=== PATIENT | female | born 1945 | race Caucasian/White ===

== ENCOUNTER 2019-10-18 22:43 | Emergency (ER) | payer MEDICARE ==
[2019-10-18 23:32] LABS: #Basophils 0.1 thou/uL (0.0-0.2); #Lymphocytes 2.5 thou/uL (1.20-3.40); #Monocytes 0.6 thou/uL (0.11-0.59); #Neutrophils 5.9 thou/uL (1.40-6.50); %Basophils 1.1 % (0.0-1.0); %Eosinophils 0.5 % (0.0-10.0); %Lymphocytes 27.4 % (21.0-51.0); %Monocytes 6.1 % (0.0-10.0); Hemoglobin 12.8 g/dL (12.0-16.0); Mean Corpuscular HGB CONC 32.7 g/dL (32.0-36.0); Mean Corpuscular Hemoglobin 29.2 pg (27.0-31.0); Mean Corpuscular Volume 89.3 fL (78.0-98.0); Platelet Count 186 thou/uL (130-400); RBC Distribution Width 13.7 % (11.5-14.5); Red Blood Cell (RBC) Count 4.39 mill/uL (4.20-5.40); White Blood Cell (WBC) Count 9.1 thou/uL (4.8-10.8)
[2019-10-18 23:33] LABS: MDiff Complete? YES; Manual Diff?? NO
[2019-10-18 23:37] LABS: Bilirubin Small (Negative); Blood, Urine Large (Negative); Clarity Cloudy (Clear); Glucose, Urine (Dipstick) Negative (Negative); Leukocyte Small (Negative); Nitrite Negative (Negative); Protein, Urine (Dipstick) 30 mg/dL (Neg-Trace); Urobilinogen 0.2 mg/dL (Less than 2)
[2019-10-18 23:44] LABS: ALT (SGPT) 15 U/L (8-55); AST (SGOT) 17 U/L (5-34); Albumin 3.9 g/dL (3.4-4.8); Alkaline Phosphatase 52 U/L (40-110); Anion Gap 15 mmol/L (10-20); BUN (Urea Nitrogen) 11 mg/dL (9.8-20.1); Bilirubin, Total 0.5 mg/dL (0.2-1.2); Calc. Creatinine Clearance 0 mL/min (70-130); Calcium 9.5 mg/dL (7.8-10.44); Carbon Dioxide 22 mmol/L (23-31); Chloride 106 mmol/L (98-107); Estimated GFR-MDRD 60; Globulin 3.3 g/dL (2.4-3.5); Glucose 110 mg/dL (83-110); Potassium 3.7 mmol/L (3.5-5.1); Protein, Total 7.2 g/dL (6.0-8.3); Sodium 139 mmol/L (136-145)
[2019-10-18 23:45] LABS: Mucous/LPF 2+ LPF (<2+); RBC/HPF Greater than 50 HPF (0-3); Squamous Epithelial 0-3 HPF (0-3); WBC/HPF 0-3 HPF (0-3)
--- NOTE | 2019-10-19 07:22 | CT ---
.PRELIMINARY REPORT/[facility]/EMERGENCY AFTER HOURS PROCEDURE: Receipt of this report by the clinical staff was confirmed with ISI NRAAYANAN MD by Samina Holley on Sep 262018 23:55:00 [employer] WORK[employer]. Addendum electronically signed by Samina Holley on October 18, 2019 11:55:59 PM BEST WORKER EXAM: CT Abdomen and Pelvis Without Intravenous Contrast CLINICAL HISTORY: Lt Flank Pain that started this evening, no hx of kidney stones TECHNIQUE: Axial computed tomography images of the abdomen and pelvis without intravenous contrast. CONTRAST: None. COMPARISON: None provided. FINDINGS: LUNG BASES: No basilar airspace consolidation or pleural effusion. LIVER: Unremarkable GALLBLADDER AND BILE DUCTS: Unremarkable. No calcified stone. No ductal dilation. PANCREAS: Unremarkable. SPLEEN: Unremarkable. ADRENAL GLANDS: Unremarkable. KIDNEYS, URETERS, AND BLADDER: Unremarkable. No hydronephrosis or nephrolithiasis. No ureteral or en dder calculi. STOMACH AND BOWEL: Colonic diverticulosis without evidence of diverticulitis. No bowel obstruction. APPENDIX: Normal appendix. PERITONEUM: No free fluid. No free air. LYMPH NODES: No lymphadenopathy. REPRODUCTIVE: Posterior to the uterus, there is a lobulated 9.8 x 5.2 x 5.7 cm heterogeneous, partial ly cystic structure. There is hyperdensity at the posterior aspect which may represent hemorrhage. Th ere is a focal calcification within the posterior aspect which may be adjacent to or possibly represe nting a calcified septation. There is hypodensity within the cervix which may represent endocervical fluid or hemorrhage. VASCULATURE: No aortic aneurysm. ABDOMINAL WALL AND SOFT TISSUES: Moderate fat-containing umbilical hernia measuring up to 6.7 cm in c raniocaudal dimension with a 2.2 cm neck. BONES: No fracture or suspicious osseous abnormality. IMPRESSION: 9.8 cm lobulated cystic heterogeneous structure at the posterior aspect of the uterus with internal h yperdensity which may represent hemorrhage. Differential diagnosis includes benign or malignant uter ine or ovarian lesions. Endocervical hypodensity may represent fluid or hemorrhage. Further evaluatio n with pelvic ultrasound and/or MRI is recommend for further evaluation. Moderate fat-containing umbilical hernia. ELECTRONICALLY SIGNED BY: Ale Harrington MD Oct 18, 2019 11:52:26 PM BEST WORKER This report is intended for review by the ordering physician only, in accordance of law. If you recei ve this report in error, please call [facility] at [phone]. FINAL REPORT CT ABDOMEN AND PELVIS WITHOUT CONTRAST: Date: 10/18/[address] of the abdomen and pelvis was done for evaluation of flank pain. The lung bases are clear. The liver, spleen, pancreas, adrenal glands, and abdominal aorta showed no acute findings. The gallbladder was slightly generous in size at 7.8 cm in length, but it otherwise appeared normal. The kidneys showed no sign of mass or hydronephrosis. Perirenal streaking is present bilaterally and is probably longstanding. There is no distention of bowel. Diverticulosis is present without findings of diverticulitis. The ap pendix was identified and appeared normal; however, there is a calcification near its tip. A fat-fill ed umbilical hernia is present, which is rather large. Transverse diameter of the hernia within the s oft tissues of the anterior abdominal wall is 7.3 cm. The neck is about 2.5 cm. No free air or free f luid seen. CT of the pelvis was remarkable for a lobulated cystic appearing density posterior to the uterus. It measures about 9.6 x 5.1 cm. There is a hyperdense area in the dependent portion of it raising the qu estion of hemorrhage. There is also a calcification associated with it. Fluid is suggested in the cer vix. All of these findings are abnormal, particularly in this age group. Further imaging is required. Extensive degenerative changes are present in the lower lumbar spine, particularly in the facet joint s. IMPRESSION: 1. 9.6 cm lobulated cystic structure posterior to the uterus. The most prominent concern would be so me sort of cystic ovarian neoplasm. In this age group, one would worry about a malignant etiology ove r a benign one, though the latter is not ruled out. A pelvic ultrasound is suggested as a next stent. There may need to be other imaging after that, such as a MRI. 2. Large, fat-filled umbilical hernia. 3. Diverticulosis. Reading in agreement with preliminary report by [facility]. POS: HOME
== END 2019-10-19 00:15 | disposition home or self-care (01) ==
LOC: BURERS 22:43
DX: R19.00 Intra-abdominal and pelvic swelling, mass and lump, unspecified site (principal); R10.32 Left lower quadrant pain; I10 Essential (primary) hypertension; E78.5 Hyperlipidemia, unspecified; Z79.899 Other long term (current) drug therapy; Z79.01 Long term (current) use of anticoagulants
CPT/HCPCS: 36415; 74176; 80053; 81003; 81015; 85025; 87086; A4353

== ENCOUNTER 2020-07-31 16:21 | Emergency (ER) | payer MEDICARE ==
[2020-07-31] MEDS ORDERED: Lorazepam 2 MG/ML VIAL ONE (17:01)
[2020-07-31 17:04] LABS: Band 1 % (5-11); Eosinophils 2 % (0-10); Hemoglobin 13.3 g/dL (12.0-16.0); Lymphocytes 33 % (21-51); MDiff Complete? YES; Mean Corpuscular Hemoglobin 27.5 pg (27.0-31.0); Mean Corpuscular Volume 91.8 fL (78.0-98.0); Mean Platelet Volume 5.9 fL (7.4-10.4); Monocytes 5 % (0-10); Neutrophil 59 % (42-75); Platelet Count 223 thou/uL (130-400); RBC Distribution Width 14.2 % (11.5-14.5); Red Blood Cell (RBC) Count 4.83 mill/uL (4.20-5.40); White Blood Cell (WBC) Count 7.5 thou/uL (4.8-10.8)
[2020-07-31 17:18] LABS: ALT (SGPT) 12 U/L (8-55); AST (SGOT) 10 U/L (5-34); Albumin 3.7 g/dL (3.4-4.8); Alkaline Phosphatase 59 U/L (40-110); Anion Gap 14 mmol/L (10-20); BUN (Urea Nitrogen) 8 mg/dL (9.8-20.1); Bilirubin, Total 0.4 mg/dL (0.2-1.2); Calc. Creatinine Clearance 0 mL/min (70-130); Calcium 9.1 mg/dL (7.8-10.44); Carbon Dioxide 27 mmol/L (23-31); Chloride 106 mmol/L (98-107); Estimated GFR-MDRD 63; Globulin 3.2 g/dL (2.4-3.5); Glucose 112 mg/dL (83-110); Potassium 4.3 mmol/L (3.5-5.1); Protein, Total 6.9 g/dL (6.0-8.3); Sodium 143 mmol/L (136-145)
--- NOTE | 2020-07-31 20:24 | CT ---
CT OF THE BRAIN WITHOUT CONTRAST: 07/31/[address] shows normal sized ventricles for age and atrophy. No intracranial bleeding, mass or sign of acute stroke was found. There is prominent opacification of the left side of the sphenoid si nus. Chronic sinusitis is presumed. A portion of it has a somewhat rounded appearance. I cannot rule out a retention cyst either. The other visible paranasal sinuses are clear. IMPRESSION: 1. No acute intracranial findings. 2. Chronic left sphenoid sinus disease. Findings discussed with Dr. Villagomez at [id number] on 07/31/20. POS: HOME
== END 2020-07-31 17:54 | disposition home or self-care (01) ==
LOC: BURERS 16:21
DX: F41.9 Anxiety disorder, unspecified (principal); J32.9 Chronic sinusitis, unspecified; E78.5 Hyperlipidemia, unspecified; I10 Essential (primary) hypertension; Z79.899 Other long term (current) drug therapy
CPT/HCPCS: 36415; 70450; 80053; 84443; 84484; 85025; 93005; 96374; J2060

== ENCOUNTER 2020-10-12 15:16 | Emergency (ER) | payer MEDICARE ==
[2020-10-12] MEDS ORDERED: Lorazepam 2 MG/ML VIAL ONE (15:56)
[2020-10-12 16:45] LABS: #Basophils 0.1 thou/uL (0.0-0.2); #Eosinphils 0.2 thou/uL (0.0-0.7); #Lymphocytes 2.4 thou/uL (1.20-3.40); #Monocytes 0.5 thou/uL (0.11-0.59); #Neutrophils 5.9 thou/uL (1.40-6.50); %Basophils 1.3 % (0.0-1.0); %Eosinophils 1.8 % (0.0-10.0); %Lymphocytes 26.2 % (21.0-51.0); %Monocytes 5.7 % (0.0-10.0); %Neutrophils 65.1 % (42.0-75.0); Hemoglobin 14.9 g/dL (12.0-16.0); Mean Corpuscular HGB CONC 31.5 g/dL (32.0-36.0); Mean Corpuscular Hemoglobin 28.1 pg (27.0-31.0); Mean Platelet Volume 6.6 fL (7.4-10.4); Platelet Count 216 thou/uL (130-400); White Blood Cell (WBC) Count 9.1 thou/uL (4.8-10.8)
[2020-10-12 16:59] LABS: ALT (SGPT) 12 U/L (8-55); AST (SGOT) 13 U/L (5-34); Albumin 3.7 g/dL (3.4-4.8); Alkaline Phosphatase 64 U/L (40-110); Anion Gap 14 mmol/L (10-20); BUN (Urea Nitrogen) 8 mg/dL (9.8-20.1); Bilirubin, Total 0.4 mg/dL (0.2-1.2); Calc. Creatinine Clearance 0 mL/min (70-130); Carbon Dioxide 27 mmol/L (23-31); Chloride 106 mmol/L (98-107); Globulin 3.9 g/dL (2.4-3.5); Glucose 116 mg/dL (83-110); Protein, Total 7.6 g/dL (6.0-8.3); Sodium 143 mmol/L (136-145)
[2020-10-12] MEDS ORDERED: Aspirin Chewable 81 MG TAB ONE (17:09)
[2020-10-12] MEDS ORDERED: Metoprolol Tartrate 5 MG/5 ML VIAL ONE (17:10)
--- NOTE | 2020-10-12 17:11 | RAD ---
PORTABLE CHEST: 10/12/20 An AP portable film at 1642 shows a normal sized heart and clear lungs. No acute infiltrate or effusi on was seen. There is no edema or congestion. IMPRESSION: No acute finding. POS: HOME
[2020-10-12 17:16] LABS: CKMB 1.1 ng/mL (0-6.6)
[2020-10-12 17:25] LABS: PTT 30.3 sec (22.9-36.1)
[2020-10-12] MEDS ORDERED: Enoxaparin Sodium 100 MG/ML SYRINGE ONE (17:31)
[2020-10-12 17:40] LABS: D-Dimer Test 7.29 *mcg/mL (0.27-0.43)
== END 2020-10-12 17:44 | disposition short-term general hospital (02) ==
LOC: BURERS 15:16
DX: I21.4 Non-ST elevation (NSTEMI) myocardial infarction (principal); F41.9 Anxiety disorder, unspecified; E78.5 Hyperlipidemia, unspecified; I10 Essential (primary) hypertension; Z79.899 Other long term (current) drug therapy
CPT/HCPCS: 71045; 80053; 82553; 83880; 84484; 85025; 85379; 85610; 85730; 93005; 96372; 96374; J1650; J2060

== ENCOUNTER 2020-12-23 17:56 | Emergency (ER) | payer MEDICARE | END 2020-12-23 18:50 | disposition home or self-care (01) | LOC: BURERS 17:56 | DX: F41.9 Anxiety disorder, unspecified (principal); E78.5 Hyperlipidemia, unspecified; E78.1 Pure hyperglyceridemia; I10 Essential (primary) hypertension | CPT/HCPCS: 99283 ==

== ENCOUNTER 2021-02-19 12:40 | Emergency (ER) | payer MEDICARE ==
[2021-02-19] MEDS ORDERED: Lorazepam 0.5 MG TAB ONE (13:28)
[2021-02-19 15:18] LABS: Clarity Slightly Cloudy (Clear); Glucose, Urine (Dipstick) Negative (Negative); Ketone, Urine Negative (Negative); Leukocyte Moderate (Negative); Nitrite Negative (Negative); Protein, Urine (Dipstick) Negative (Neg-Trace); Urobilinogen 0.2 mg/dL (Less than 2)
[2021-02-19 15:19] LABS: Bacteria/HPF 2+ HPF (None Seen); Bilirubin Negative (Negative); Blood, Urine Negative (Negative); RBC/HPF 0-3 HPF (0-3); Squamous Epithelial 0-3 HPF (0-3)
[2021-02-19 15:20] LABS: Hemoglobin 14.1 g/dL (12.0-16.0); Red Blood Cell (RBC) Count 4.88 mill/uL (4.20-5.40); White Blood Cell (WBC) Count 7.3 thou/uL (4.8-10.8)
[2021-02-19 15:21] LABS: #Eosinphils 0.1 thou/uL (0.0-0.7); #Monocytes 0.4 thou/uL (0.11-0.59); #Neutrophils 4.1 thou/uL (1.40-6.50); %Basophils 1.4 % (0.0-1.0); %Lymphocytes 35.5 % (21.0-51.0); %Monocytes 5.6 % (0.0-10.0); %Neutrophils 56.5 % (42.0-75.0); Mean Corpuscular HGB CONC 31.4 g/dL (32.0-36.0); Mean Corpuscular Hemoglobin 28.8 pg (27.0-31.0); Mean Corpuscular Volume 91.8 fL (78.0-98.0); Mean Platelet Volume 5.9 fL (7.4-10.4); Platelet Count 257 thou/uL (130-400); RBC Distribution Width 14.1 % (11.5-14.5)
[2021-02-19 15:22] LABS: #Basophils 0.1 thou/uL (0.0-0.2); MDiff Complete? YES
[2021-02-19 15:23] LABS: Anion Gap 13 mmol/L (10-20); BUN (Urea Nitrogen) 8 mg/dL (9.8-20.1); Carbon Dioxide 27 mmol/L (23-31); Chloride 107 mmol/L (98-107); Potassium 4.6 mmol/L (3.5-5.1); Sodium 142 mmol/L (136-145)
[2021-02-19 15:24] LABS: ALT (SGPT) 10 U/L (8-55); AST (SGOT) 12 U/L (5-34); Albumin 3.6 g/dL (3.4-4.8); Alkaline Phosphatase 57 U/L (40-110); Bilirubin, Total 0.4 mg/dL (0.2-1.2); Calc. Creatinine Clearance 0 mL/min (70-130); Calcium 9.1 mg/dL (7.8-10.44); Globulin 3.2 g/dL (2.4-3.5); Glucose 107 mg/dL (83-110); Protein, Total 6.8 g/dL (5.8-8.1)
== END 2021-02-19 14:15 | disposition home or self-care (01) ==
LOC: BURERS 12:40
DX: N39.0 Urinary tract infection, site not specified (principal); F41.9 Anxiety disorder, unspecified
CPT/HCPCS: 36415; 80053; 81003; 81015; 84443; 85025; 99282

== ENCOUNTER 2021-04-29 13:40 | Emergency (ER) | payer BC, MEDICARE, SELFPAY ==
[2021-04-29 14:36] LABS: #Basophils 0.1 thou/uL (0.0-0.2); #Eosinphils 0.1 thou/uL (0.0-0.7); #Lymphocytes 2.3 thou/uL (1.20-3.40); #Monocytes 0.4 thou/uL (0.11-0.59); #Neutrophils 3.7 thou/uL (1.40-6.50); %Basophils 1.5 % (0.0-1.0); %Eosinophils 0.9 % (0.0-10.0); %Lymphocytes 34.8 % (21.0-51.0); %Monocytes 5.8 % (0.0-10.0); Hemoglobin 14.3 g/dL (12.0-16.0); Mean Corpuscular HGB CONC 31.2 g/dL (32.0-36.0); Mean Corpuscular Hemoglobin 28.4 pg (27.0-31.0); Mean Platelet Volume 6.1 fL (7.4-10.4); Platelet Count 230 thou/uL (130-400); RBC Distribution Width 13.4 % (11.5-14.5); Red Blood Cell (RBC) Count 5.04 mill/uL (4.20-5.40); White Blood Cell (WBC) Count 6.5 thou/uL (4.8-10.8)
[2021-04-29 14:37] LABS: Bilirubin Negative (Negative); Blood, Urine Negative (Negative); Clarity Cloudy (Clear); Glucose, Urine (Dipstick) Negative (Negative); Ketone, Urine Negative (Negative); Leukocyte Moderate (Negative); Nitrite Negative (Negative); Protein, Urine (Dipstick) Negative (Neg-Trace); Urobilinogen 0.2 mg/dL (Less than 2)
[2021-04-29 14:39] LABS: Bacteria/HPF 2+ HPF (None Seen); Mucous/LPF 4+ LPF (<2+); RBC/HPF 0-3 HPF (0-3)
[2021-04-29 14:51] LABS: ALT (SGPT) 10 U/L (8-55); AST (SGOT) 12 U/L (5-34); Albumin 3.6 g/dL (3.4-4.8); Alkaline Phosphatase 57 U/L (40-110); Anion Gap 13 mmol/L (10-20); BUN (Urea Nitrogen) 10 mg/dL (9.8-20.1); Bilirubin, Total 0.3 mg/dL (0.2-1.2); Calc. Creatinine Clearance 0 mL/min (70-130); Calcium 9.1 mg/dL (7.8-10.44); Carbon Dioxide 25 mmol/L (23-31); Chloride 106 mmol/L (98-107); Globulin 3.2 g/dL (2.4-3.5); Glucose 108 mg/dL (83-110); Potassium 4.2 mmol/L (3.5-5.1); Protein, Total 6.8 g/dL (5.8-8.1); Sodium 140 mmol/L (136-145)
== END 2021-04-29 15:15 | disposition home or self-care (01) ==
LOC: BURERS 13:40
DX: N39.0 Urinary tract infection, site not specified (principal); F41.9 Anxiety disorder, unspecified; Z79.899 Other long term (current) drug therapy; Z79.01 Long term (current) use of anticoagulants
CPT/HCPCS: 80053; 81003; 81015; 84484; 85025; 87086; 93005

== ENCOUNTER 2022-07-03 12:50 | Inpatient (IN) | payer BC ==
[2022-07-03] MEDS ORDERED: Acetaminophen 325 MG TAB PO PRN (14:43)
[2022-07-03] MEDS ORDERED: Acetaminophen 650 MG Suppository PR PRN (14:44)
[2022-07-03] MEDS ORDERED: HYDROcodone/Acetaminophen 5/325 mg Tablet PO PRN ×2 (14:44→14:45)
[2022-07-03] MEDS ORDERED: Ondansetron ODT 4 MG TAB PO PRN (14:45)
[2022-07-03] MEDS ORDERED: Calcium Carbonate 500 MG ChewTAB PO PRN (14:46)
[2022-07-03] MEDS ORDERED: Ondansetron PF 4 MG/2 ML Vial IVP PRN (14:46)
[2022-07-03] MEDS ORDERED: Zolpidem Tartrate 5 MG TAB PO PRN (14:49)
[2022-07-03] MEDS ORDERED: Loperamide HCl 2 MG CAP PO PRN ×2 (14:50→14:51)
[2022-07-03 14:58] VITALS: BMI 34.4
[2022-07-03] MEDS: Rivaroxaban 10 MG TAB PO SCH (21:42)
[2022-07-03] MEDS: guaiFENesin ER 600 MG TAB PO SCH (21:42)
[2022-07-03] MEDS: PHOS-NAK 1 PKT PACK PO SCH (21:44)
[2022-07-04] MEDS: guaiFENesin ER 600 MG TAB PO SCH ×2 (08:39→21:02)
[2022-07-04] MEDS: Rivaroxaban 10 MG TAB PO SCH ×2 (08:39→21:01)
[2022-07-04] MEDS: Amlodipine 5 MG TAB PO SCH (08:39)
[2022-07-04] MEDS: PHOS-NAK 1 PKT PACK PO SCH ×2 (09:00→21:02)
[2022-07-04] MEDS: hydrOXYzine 25 MG TAB PO PRN (18:25)
[2022-07-05] MEDS: guaiFENesin ER 600 MG TAB PO SCH ×2 (08:35→20:25)
[2022-07-05] MEDS: Amlodipine 5 MG TAB PO SCH (08:38)
[2022-07-05] MEDS: PHOS-NAK 1 PKT PACK PO SCH (08:39)
[2022-07-05] MEDS: Rivaroxaban 10 MG TAB PO SCH ×2 (08:39→20:25)
[2022-07-06] MEDS: Amlodipine 5 MG TAB PO SCH (08:13)
[2022-07-06] MEDS: guaiFENesin ER 600 MG TAB PO SCH ×2 (08:14→21:03)
[2022-07-06] MEDS: Rivaroxaban 10 MG TAB PO SCH ×2 (08:14→21:03)
[2022-07-06] MEDS: hydrOXYzine 25 MG TAB PO PRN (12:47)
[2022-07-07] MEDS: Amlodipine 5 MG TAB PO SCH (08:50)
[2022-07-07] MEDS: guaiFENesin ER 600 MG TAB PO SCH ×2 (08:50→21:08)
[2022-07-07] MEDS: Senokot S 8.6-50 MG TAB PO PRN (08:50)
[2022-07-07] MEDS: Rivaroxaban 10 MG TAB PO SCH ×2 (08:50→21:08)
[2022-07-07] MEDS: Furosemide 20 MG TAB PO PRN (08:51)
[2022-07-07] MEDS: hydrOXYzine 25 MG TAB PO PRN (17:38)
[2022-07-08] MEDS: Rivaroxaban 10 MG TAB PO SCH (09:05)
[2022-07-08] MEDS: Amlodipine 5 MG TAB PO SCH (09:05)
[2022-07-08] MEDS: guaiFENesin ER 600 MG TAB PO SCH ×2 (09:05→21:36)
[2022-07-08] MEDS: Bisacodyl 5 MG TAB PO PRN (09:06)
[2022-07-08] MEDS: Furosemide 20 MG TAB PO PRN (09:06)
[2022-07-08] MEDS: hydrOXYzine 25 MG TAB PO PRN (12:50)
[2022-07-08 15:07] LABS: ALT (SGPT) 25 U/L (8-55); AST (SGOT) 28 U/L (5-34); Albumin 3.5 g/dL (3.4-4.8); Alkaline Phosphatase 51 U/L (40-110); Anion Gap 16 mmol/L (10-20); BUN (Urea Nitrogen) 15 mg/dL (9.8-20.1); Bilirubin, Total 0.6 mg/dL (0.2-1.2); Calc. Creatinine Clearance 94 mL/min (70-130); Calcium 9.6 mg/dL (7.8-10.44); Carbon Dioxide 21 mmol/L (23-31); Chloride 103 mmol/L (98-107); Estimated GFR 77; Globulin 3.6 g/dL (2.4-3.5); Glucose 114 mg/dL (83-110); Potassium 4.5 mmol/L (3.5-5.1); Protein, Total 7.1 g/dL (5.8-8.1); Sodium 135 mmol/L (136-145)
[2022-07-08 16:17] LABS: Hemoglobin 14.3 g/dL (12.0-16.0); Mean Corpuscular Hemoglobin 27.9 pg (27.0-31.0); Mean Corpuscular Volume 87.3 fL (78.0-98.0); Mean Platelet Volume 6.6 fL (7.4-10.4); Platelet Count 342 thou/uL (130-400); RBC Distribution Width 15.4 % (11.5-14.5); Red Blood Cell (RBC) Count 5.14 mill/uL (4.20-5.40); White Blood Cell (WBC) Count 8.3 thou/uL (4.8-10.8)
[2022-07-08 16:19] LABS: MDiff Complete? YES
[2022-07-08 16:20] LABS: Neutrophil 70 % (42-75)
[2022-07-08 16:21] LABS: Band 2 % (5-11); Lymphocytes 11 % (21-51); Monocytes 11 % (0-10); Reactive Lymphocytes 6 % (0-10)
[2022-07-08] MEDS ORDERED: Rivaroxaban 10 MG TAB PO SCH (21:00)
[2022-07-09] MEDS: guaiFENesin ER 600 MG TAB PO SCH ×2 (08:28→20:33)
[2022-07-09] MEDS: Amlodipine 5 MG TAB PO SCH (08:29)
[2022-07-09] MEDS: Rivaroxaban 10 MG TAB PO SCH (17:30)
[2022-07-09] MEDS: hydrOXYzine 25 MG TAB PO PRN (17:30)
[2022-07-10] MEDS: Amlodipine 5 MG TAB PO SCH (09:07)
[2022-07-10] MEDS: Senokot S 8.6-50 MG TAB PO PRN (09:07)
[2022-07-10] MEDS: guaiFENesin ER 600 MG TAB PO SCH (09:07)
[2022-07-10] MEDS: Rivaroxaban 10 MG TAB PO SCH (16:43)
[2022-07-10] MEDS: hydrOXYzine 25 MG TAB PO PRN (18:32)
[2022-07-11 05:34] LABS: Anion Gap 13 mmol/L (10-20); BUN (Urea Nitrogen) 14 mg/dL (9.8-20.1); Calc. Creatinine Clearance 106 mL/min (70-130); Calcium 8.6 mg/dL (7.8-10.44); Carbon Dioxide 21 mmol/L (23-31); Chloride 107 mmol/L (98-107); Estimated GFR 89; Glucose 91 mg/dL (83-110)
[2022-07-11 05:46] LABS: Potassium 3.9 mmol/L (3.5-5.1); Sodium 137 mmol/L (136-145)
[2022-07-11] MEDS: Amlodipine 5 MG TAB PO SCH (08:35)
[2022-07-11] MEDS: Bisacodyl 5 MG TAB PO PRN (08:36)
[2022-07-11] MEDS: Rivaroxaban 10 MG TAB PO SCH (17:35)
[2022-07-12] MEDS: Senokot S 8.6-50 MG TAB PO PRN (08:44)
[2022-07-12] MEDS: Amlodipine 5 MG TAB PO SCH (08:44)
[2022-07-12] MEDS: hydrOXYzine 25 MG TAB PO PRN (13:03)
[2022-07-12] MEDS: Rivaroxaban 10 MG TAB PO SCH (17:00)
[2022-07-13] MEDS: Senokot S 8.6-50 MG TAB PO PRN (09:03)
[2022-07-13] MEDS: Amlodipine 5 MG TAB PO SCH (09:03)
[2022-07-13] MEDS: hydrOXYzine 25 MG TAB PO PRN ×2 (12:46→20:13)
[2022-07-13] MEDS: Rivaroxaban 10 MG TAB PO SCH (17:47)
[2022-07-14 05:13] LABS: Hemoglobin 12.8 g/dL (12.0-16.0); Platelet Count 317 thou/uL (130-400)
[2022-07-14] MEDS: Furosemide 20 MG TAB PO PRN (08:28)
[2022-07-14] MEDS: Amlodipine 5 MG TAB PO SCH (08:28)
[2022-07-14] MEDS: Senokot S 8.6-50 MG TAB PO PRN (08:28)
[2022-07-14] MEDS: hydrOXYzine 25 MG TAB PO PRN ×2 (10:45→20:53)
[2022-07-14] MEDS: Rivaroxaban 10 MG TAB PO SCH (16:50)
[2022-07-14 19:19] LABS: Bilirubin Negative (Negative); Blood, Urine Negative (Negative); Clarity Cloudy (Clear); Glucose, Urine (Dipstick) Negative (Negative); Ketone, Urine Trace mg/dL (Negative); Leukocyte Negative (Negative); Nitrite Negative (Negative); Protein, Urine (Dipstick) Negative (Neg-Trace); Urobilinogen 0.2 mg/dL (Less than 2)
[2022-07-14 19:21] LABS: Specific Gravity, Urine 1.028 (1.002-1.036); Urine Culture Reflex No No
[2022-07-14 19:27] LABS: RBC/HPF None Seen HPF (0-3); WBC/HPF None Seen HPF (0-3)
[2022-07-14 19:28] LABS: Bacteria/HPF Rare-Few HPF (None Seen)
[2022-07-14 19:32] LABS: Squamous Epithelial 21-50 HPF (0-3)
[2022-07-14 19:33] LABS: Calcium Oxalate Crystals 1+ HPF (None Seen)
[2022-07-14 20:02] LABS: Yeast-Hyphae Rare HPF (None Seen)
[2022-07-15] MEDS: Furosemide 20 MG TAB PO PRN (08:07)
[2022-07-15] MEDS: Bisacodyl 5 MG TAB PO PRN (08:07)
[2022-07-15] MEDS: Amlodipine 5 MG TAB PO SCH (08:07)
[2022-07-15] MEDS: Rivaroxaban 10 MG TAB PO SCH (16:31)
[2022-07-15] MEDS: hydrOXYzine 25 MG TAB PO PRN (20:32)
[2022-07-16] MEDS: Amlodipine 5 MG TAB PO SCH (09:07)
[2022-07-16] MEDS: hydrOXYzine 25 MG TAB PO PRN (15:12)
[2022-07-16] MEDS: Rivaroxaban 10 MG TAB PO SCH (17:42)
[2022-07-17] MEDS: Amlodipine 5 MG TAB PO SCH (08:24)
[2022-07-17] MEDS: hydrOXYzine 25 MG TAB PO PRN (15:30)
[2022-07-17] MEDS: Rivaroxaban 10 MG TAB PO SCH (17:11)
[2022-07-18 06:16] VITALS: TEMP 97.3
[2022-07-18] MEDS: Amlodipine 5 MG TAB PO SCH (09:05)
[2022-07-18 09:06] VITALS: BP 130/60
== END 2022-07-18 12:15 | disposition home or self-care (01) | DRG 947 ==
LOC: BURMED 12:50
PROVIDERS: ADMIT Family Medicine; ATTEND Family Medicine
PROC: 8E0ZXY6 Isolation (ICD-10-PCS; principal; 2022-07-03)
DX: R53.81 Other malaise (principal); U07.1 COVID-19; I82.409 Acute embolism and thrombosis of unspecified deep veins of unspecified lower extremity; I10 Essential (primary) hypertension; E78.5 Hyperlipidemia, unspecified; T79.6XXA Traumatic ischemia of muscle, initial encounter; W19.XXXA Unspecified fall, initial encounter; F41.8 Other specified anxiety disorders; F03.90 Unspecified dementia, unspecified severity, without behavioral disturbance, psychotic disturbance, mood disturbance, and anxiety; Z79.01 Long term (current) use of anticoagulants; Z87.440 Personal history of urinary (tract) infections; Z79.899 Other long term (current) drug therapy; Z98.49 Cataract extraction status, unspecified eye
CPT/HCPCS: 36415; 71046; 80048; 80053; 81001; 85014; 85018; 85025; 85049